=== PATIENT | male | born 1995 | race Two or more races ===

== ENCOUNTER 2024-06-27 18:27 | Emergency (ER) | payer OTHER ==
[~2024-06-27] VITALS: Ht 170.2 cm; Wt 110.3 kg
[2024-06-27 19:20] VITALS: BP 117/85; PULSE 79; RESP 17; TEMP 98.8; O2SAT 98
[2024-06-27] MEDS ORDERED: LEVO500T91 PO (19:37)
[2024-06-27] MEDS ORDERED: IBUP-1456 PO (19:37)
[2024-06-27 20:19] LABS: Urine Bacteria None Seen /hpf (None Seen); Urine Blood Negative /uL (Negative); Urine Clarity Clear (Clear); Urine Color Light-Yellow (Yellow); Urine Protein, UAD Negative (Negative); Urine Urobilinogen Normal (Negative); Urine WBC 1 /hpf (0 - 3)
== END 2024-06-27 19:59 | disposition home or self-care (01) ==
LOC: ER 18:32
DX: N43.3 Hydrocele, unspecified (principal)
CPT/HCPCS: 76870; 81001